=== PATIENT | female | born 1955 | race Two or more races ===

== ENCOUNTER 2022-02-04 09:57 | Outpatient (CLI) | payer OTHER | END 2022-02-04 09:59 | disposition home or self-care (01) | LOC: SONOGRAMA 09:57 | PROVIDERS: ATTEND Pathology Anatomic Pathology & Clinical Pathology | DX: E04.2 Nontoxic multinodular goiter (principal) ==

== ENCOUNTER 2024-01-15 14:59 | Outpatient (CLI) | payer OTHER | END 2024-01-15 15:02 | disposition home or self-care (01) | LOC: SONOGRAMA 14:59 | PROVIDERS: ATTEND Pathology Anatomic Pathology & Clinical Pathology | DX: D34 Benign neoplasm of thyroid gland (principal); E07.89 Other specified disorders of thyroid; E04.2 Nontoxic multinodular goiter; R59.0 Localized enlarged lymph nodes ==